=== PATIENT | male | born 1960 | race Caucasian/White ===

== ENCOUNTER 2017-09-12 05:10 | Emergency (ER) | payer OTHER ==
[~2017-09-12] VITALS: Ht 172.7 cm; Wt 77.8 kg
[2017-09-12] MEDS ORDERED: SODIUM CHLORIDE FLUSH 10ML SYR IVF ONE (05:30)
[2017-09-12 05:55] LABS: BASOPHILS # (AUTO) 0.04 x10^3/uL (0-0.1); BASOPHILS % (AUTO) 1 % (0-1); EOSINOPHILS # (AUTO) 0.18 x10^3/uL (0-0.4); EOSINOPHILS % (AUTO) 3 % (1-7); LYMPHOCYTES # (AUTO) 1.83 x10^3/uL (1-3.4); LYMPHOCYTES % (AUTO) 25 % (22-44); MD NO; MEAN CORPUSCULAR HEMOGLOBIN 31.5 pg (27.5-34.5); MEAN CORPUSCULAR HGB CONC 34.2 g/dL (33.2-36.2); MEAN CORPUSCULAR VOLUME 92.2 fL (81-97); MEAN PLATELET VOLUME 8.1 fL (7.4-10.4); MONOCYTES # (AUTO) 0.56 x10^3/uL (0.2-0.8); MONOCYTES % (AUTO) 8 % (2-9); NEUTROPHILS # (AUTO) 4.58 x10^3/uL (1.8-6.8); NEUTROPHILS % (AUTO) 64 % (42-75); PLATELET COUNT 188 x10^3/uL (130-400); RED BLOOD COUNT 4.88 x10^6/uL (4.38-5.82); RED CELL DISTRIBUTION WIDTH 13.1 % (9.4-14.8)
[2017-09-12 05:57] LABS: MICROSCOPIC NOT IND
[2017-09-12 06:05] LABS: INTERNATIONAL NORMALIZED RATIO 0.98 (0.93-1.1); PROTHROMBIN TIME 10.2 Seconds (9.6-11.5)
[2017-09-12 06:11] LABS: ALBUMIN 3.6 g/dL (3.4-5.0); ANION GAP 7 mmol/L (5-15); CALCIUM 8.8 mg/dL (8.5-10.1); CHLORIDE 109 mmol/L (98-107)
[2017-09-12 06:16] LABS: CULTURE INDICATED? NO
[2017-09-12 06:20] LABS: ALANINE AMINOTRANSFERASE 36 U/L (12-78); ALKALINE PHOSPHATASE 64 U/L (45-117); BILIRUBIN,TOTAL 0.5 mg/dL (0.2-1.0); CREATININE 1.05 mg/dL (0.7-1.3); TOTAL PROTEIN 6.9 g/dL (6.4-8.2)
[2017-09-12] MEDS ORDERED: GADOBUTROL 10 MMOL/10 ML PFS ONE (10:08)
[2017-09-12] MEDS ORDERED: DEXAMETHASONE 4 MG TABLET ONE (12:46)
[2017-09-12] MEDS ORDERED: DEXAMETHASONE 4 MG/ML, 1ML IVPush ONE (13:00)
[2017-09-12] MEDS ORDERED: DEXAMETHASONE 4 MG TABLET PO ONE (13:00)
[2017-09-12 15:16] VITALS: BP 120/86
== END 2017-09-12 15:18 | disposition home or self-care (01) ==
LOC: ED 07:18
DX: R33.9 Retention of urine, unspecified (principal); R51 Headache; R29.2 Abnormal reflex
CPT/HCPCS: 36415; 70450; 70552; 72156; 72157; 72158; 74018; 80053; 81003; 83690; 85025; 85610; 93005; 99285; A9585

== ENCOUNTER 2017-09-20 19:22 | Inpatient (IN) | payer OTHER ==
[~2017-09-20] VITALS: Ht 172.7 cm; Wt 75.1 kg
[2017-09-20 20:26] LABS: BASOPHILS # (AUTO) 0.04 x10^3/uL (0-0.1); BASOPHILS % (AUTO) 1 % (0-1); EOSINOPHILS # (AUTO) 0.19 x10^3/uL (0-0.4); EOSINOPHILS % (AUTO) 2 % (1-7); LYMPHOCYTES % (AUTO) 16 % (22-44); MD NO; MEAN CORPUSCULAR HEMOGLOBIN 31.3 pg (27.5-34.5); MEAN CORPUSCULAR HGB CONC 33.5 g/dL (33.2-36.2); MEAN CORPUSCULAR VOLUME 93.5 fL (81-97); MEAN PLATELET VOLUME 8.2 fL (7.4-10.4); MONOCYTES # (AUTO) 0.72 x10^3/uL (0.2-0.8); MONOCYTES % (AUTO) 8 % (2-9); NEUTROPHILS # (AUTO) 6.57 x10^3/uL (1.8-6.8); NEUTROPHILS % (AUTO) 74 % (42-75); PLATELET COUNT 257 x10^3/uL (130-400); RED BLOOD COUNT 5.25 x10^6/uL (4.38-5.82); RED CELL DISTRIBUTION WIDTH 13.3 % (9.4-14.8)
[2017-09-20 20:27] LABS: HCT (SEDRATE) 49.1 % (39.2-51.8)
[2017-09-20] MEDS ORDERED: SODIUM CHLORIDE FLUSH 10ML SYR IVF ONE (20:30)
[2017-09-20 20:37] LABS: ANION GAP 6 mmol/L (5-15); C-REACTIVE PROTEIN, QUANT 0.62 mg/dL (0.02-0.49); CALCIUM 9.3 mg/dL (8.5-10.1); CHLORIDE 105 mmol/L (98-107); CREATININE 1.03 mg/dL (0.7-1.3)
[2017-09-20] MEDS ORDERED: OMEG1CAP23 PO (20:49)
[2017-09-20] MEDS ORDERED: methylPREDNISolone SOD SUCC 125 MG/2 ML ONE (21:16)
[2017-09-20] MEDS ORDERED: methylPREDNISolone SOD SUCC 125 MG/2 ML IVPush ONE (21:30)
[2017-09-20 21:41] LABS: INTERNATIONAL NORMALIZED RATIO 1.01 (0.93-1.1); PROTHROMBIN TIME 10.5 Seconds (9.6-11.5)
[2017-09-20 22:00] VITALS: BP 121/84
[2017-09-20] MEDS: SODIUM CHLORIDE 0.9% 1,000 ML IV SCH (23:01)
[2017-09-20] MEDS ORDERED: BISACODYL 10 MG SUPP PR PRN (23:30)
[2017-09-20] MEDS ORDERED: hydrALAzine 20 MG/ML, 1ML IVPush PRN (23:30)
[2017-09-20] MEDS ORDERED: morphine SULFATE 10 MG/ML, 1ML IVPush PRN (23:30)
[2017-09-20] MEDS ORDERED: ENALAPRILAT 1.25 MG/ML, 2ML IVPush PRN (23:30)
[2017-09-20] MEDS ORDERED: POLYETHYLENE GLYCOL 17 GM PACKET PO PRN (23:30)
[2017-09-20] MEDS ORDERED: METHOCARBAMOL 500 MG TABLET PO PRN (23:30)
[2017-09-20] MEDS ORDERED: ONDANSETRON 2MG/ML, 2ML IVPush PRN (23:30)
[2017-09-20] MEDS ORDERED: ACETAMINOPHEN 325 MG TABLET PO PRN (23:30)
[2017-09-20] MEDS ORDERED: MAGNESIUM CITRATE 300ML ORAL SOL PO ONE (23:30)
[2017-09-20] MEDS ORDERED: OXYcodone IR 5MG TABLET PO PRN (23:30)
[2017-09-20 23:48] LABS: HEMOGLOBIN A1C 5.5 % (4.2-6.3)
[2017-09-20 23:50] LABS: FREE T4 (FREE THYROXINE) 0.87 ng/dL (0.76-1.46)
[2017-09-21] MEDS: THIAMINE 100MG TABLET PO SCH ×2 (00:01→08:48)
[2017-09-21] MEDS: GABAPENTIN 100 MG CAPSULE PO SCH ×5 (00:01→20:25)
[2017-09-21] MEDS: MULTIVITAMIN 1 TABLET PO SCH ×2 (00:02→08:48)
[2017-09-21] MEDS: FOLIC ACID 1 MG TABLET PO SCH ×2 (00:02→08:48)
[2017-09-21] MEDS: DEXAMETHASONE 4 MG/ML, 1ML IVPush SCH ×5 (00:02→23:41)
[2017-09-21 00:03] LABS: MICROSCOPIC NOT IND
[2017-09-21 00:09] LABS: CULTURE INDICATED? NO
[2017-09-21] MEDS ORDERED: MAGNESIUM CITRATE 300ML ORAL SOL PO ONE (04:30)
[2017-09-21 05:13] VITALS: BP 107/76
[2017-09-21 05:57] LABS: BASOPHILS % (AUTO) 0 % (0-1); EOSINOPHILS % (AUTO) 0 % (1-7); LYMPHOCYTES # (AUTO) 0.52 x10^3/uL (1-3.4); LYMPHOCYTES % (AUTO) 5 % (22-44); MD NO; MEAN CORPUSCULAR HEMOGLOBIN 31.6 pg (27.5-34.5); MEAN CORPUSCULAR HGB CONC 34.1 g/dL (33.2-36.2); MEAN CORPUSCULAR VOLUME 92.5 fL (81-97); MEAN PLATELET VOLUME 8.7 fL (7.4-10.4); MONOCYTES # (AUTO) 0.05 x10^3/uL (0.2-0.8); MONOCYTES % (AUTO) 1 % (2-9); NEUTROPHILS # (AUTO) 9.61 x10^3/uL (1.8-6.8); NEUTROPHILS % (AUTO) 94 % (42-75); PLATELET COUNT 235 x10^3/uL (130-400); RED BLOOD COUNT 4.86 x10^6/uL (4.38-5.82); RED CELL DISTRIBUTION WIDTH 13.4 % (9.4-14.8)
[2017-09-21 06:03] LABS: CHLORIDE 109 mmol/L (98-107)
[2017-09-21 06:09] LABS: ALANINE AMINOTRANSFERASE 27 U/L (12-78); ALBUMIN 3.5 g/dL (3.4-5.0); ALKALINE PHOSPHATASE 69 U/L (45-117); ANION GAP 9 mmol/L (5-15); BILIRUBIN,TOTAL 0.5 mg/dL (0.2-1.0); CALCIUM 8.7 mg/dL (8.5-10.1); CHOLESTEROL, TOTAL 180 mg/dL (140-239); CREATININE 0.98 mg/dL (0.7-1.3); HDL CHOL % 25 % (26-37); HDL CHOLESTEROL (DIRECT) 45 mg/dL (40-60); LDL CHOLESTEROL,CALCULATED 124 mg/dL (54-169); LDL/HDL RATIO 2.8 (0.5-3.0); TOTAL PROTEIN 6.9 g/dL (6.4-8.2); TRIGLYCERIDES 54 mg/dL (50-200); VLDL CHOLESTEROL 11 mg/dL (0-25)
[2017-09-21] MEDS: SODIUM CHLORIDE 0.9% 1,000 ML IV SCH ×2 (07:01→17:00)
[2017-09-21 08:02] VITALS: BP 120/71
[2017-09-21] MEDS: SENNA/DOCUSATE TABLET PO SCH (08:48)
[2017-09-21 13:15] VITALS: BP 124/79
[2017-09-21 14:09] VITALS: BP 103/63
[2017-09-21] MEDS ORDERED: MAGNESIUM CITRATE 300ML ORAL SOL ONE (18:25)
[2017-09-21 19:20] VITALS: BP 122/81
[2017-09-22] MEDS: SODIUM CHLORIDE 0.9% 1,000 ML IV SCH ×3 (01:00→16:05)
[2017-09-22 01:42] VITALS: BP 121/69
[2017-09-22] MEDS: DEXAMETHASONE 4 MG/ML, 1ML IVPush SCH (05:36)
[2017-09-22] MEDS: GABAPENTIN 100 MG CAPSULE PO SCH (05:36)
[2017-09-22 06:53] VITALS: BP 121/72
[2017-09-22] MEDS: MULTIVITAMIN 1 TABLET PO SCH (08:44)
[2017-09-22] MEDS: THIAMINE 100MG TABLET PO SCH (08:44)
[2017-09-22] MEDS: FOLIC ACID 1 MG TABLET PO SCH (08:44)
[2017-09-22] MEDS: SENNA/DOCUSATE TABLET PO SCH (08:44)
[2017-09-22] MEDS ORDERED: ERGOCALCIFEROL 50,000 UNIT CAPSULE PO SCH (09:30)
[2017-09-22] MEDS: GABAPENTIN 300 MG CAPSULE PO SCH ×2 (10:54→16:05)
[2017-09-22] MEDS ORDERED: GABA300C10 PO (11:58)
[2017-09-22] MEDS ORDERED: MULT1TAB60 PO (11:58)
[2017-09-22] MEDS ORDERED: SENN1TAB7 PO (11:58)
[2017-09-22] MEDS ORDERED: BISA10SU65 PR (11:58)
[2017-09-22] MEDS ORDERED: THIA100T6 PO (11:58)
[2017-09-22] MEDS ORDERED: ACET325T14 PO (11:58)
[2017-09-22] MEDS ORDERED: ERGO500017 PO (11:58)
[2017-09-22] MEDS ORDERED: FOLI-17 PO (11:58)
[2017-09-22] MEDS ORDERED: METH500T7 PO (11:58)
[2017-09-22] MEDS ORDERED: DEXA4TAB PO (11:58)
[2017-09-22] MEDS ORDERED: MAGN296S9 PO (12:24)
[2017-09-22] MEDS: DEXAMETHASONE 4 MG TABLET PO SCH ×2 (12:28→16:05)
[2017-09-22] MEDS ORDERED: MAGNESIUM CITRATE 300ML ORAL SOL PO PRN (12:30)
[2017-09-22] MEDS ORDERED: TAMS0.4C2 PO (12:49)
[2017-09-22 14:09] VITALS: BP 119/67
[2017-09-22 14:39] LABS: GLUCOSE, CSF 87 mg/dL (40-80); TOTAL PROTEIN,CSF 54 mg/dL (15-45)
[2017-09-22] MEDS ORDERED: GABAPENTIN 300 MG CAPSULE PO SCH (16:00)
== END 2017-09-22 18:00 | disposition home or self-care (01) | DRG 74 ==
LOC: ED 20:39 → EDIP 21:51 → 4NOR 21:56
PROVIDERS: ADMIT Internal Medicine; ATTEND Internal Medicine
PROC: 009U3ZX Drainage of Spinal Canal, Percutaneous Approach, Diagnostic (ICD-10-PCS; principal; 2017-09-22)
PROC: B01B1ZZ Fluoroscopy of Spinal Cord using Low Osmolar Contrast (ICD-10-PCS; 2017-09-22)
DX: G62.9 Polyneuropathy, unspecified (principal); G81.90 Hemiplegia, unspecified affecting unspecified side; K59.00 Constipation, unspecified; M48.02 Spinal stenosis, cervical region; M50.223 Other cervical disc displacement at C6-C7 level; M51.24 Other intervertebral disc displacement, thoracic region; M51.27 Other intervertebral disc displacement, lumbosacral region; Z79.899 Other long term (current) drug therapy
CPT/HCPCS: 36415; 62270; 80048; 80053; 80061; 81003; 82040; 82042; 82306; 82607; 82784; 82945; 83036; 83735; 83873; 84157; 84439; 84443; 85025; 85610; 85651; 86140; 86316; 86645; 86695; 86696; 86762; 86777; 86778; 87252; 89051; 93005; 96374; J1100; J2930; J7030

== ENCOUNTER → 2017-10-27 | Outpatient (CLI) | payer OTHER ==
[~2017-10-27] MED LIST: ACET325T14 PO; BISA10SU65 PR; DEXA4TAB PO; ERGO500017 PO; FOLI-17 PO; GABA300C10 PO; MAGN296S9 PO; METH500T7 PO; MULT1TAB60 PO; OMEG1CAP23 PO; SENN1TAB7 PO; TAMS0.4C2 PO; THIA100T6 PO
[2017-10-27 08:06] LABS: HCT (SEDRATE) 42.5 % (39.2-51.8)
[2017-10-27 08:44] LABS: FOLATE LEVEL > 20.0 ng/mL (3.1-17.5)
== END | disposition home or self-care (01) ==
LOC: LAB 07:47
PROVIDERS: ATTEND Psychiatry & Neurology Neurology
DX: G95.9 Disease of spinal cord, unspecified (principal)
CPT/HCPCS: 36415; 82390; 82525; 82607; 82746; 85651; 86038

== ENCOUNTER → 2018-02-17 | Outpatient (CLI) | payer OTHER ==
[~2018-02-17] MED LIST changes: +GADOBUTROL 7.5 MMOL/7.5 ML PFS ONE
== END | disposition home or self-care (01) ==
LOC: CFH 09:08
PROVIDERS: ATTEND Family Medicine
DX: M47.894 Other spondylosis, thoracic region (principal); G37.3 Acute transverse myelitis in demyelinating disease of central nervous system
CPT/HCPCS: 72157; 83520; A9585

== ENCOUNTER → 2018-08-12 | Outpatient (CLI) | payer OTHER ==
[~2018-08-12] MED LIST changes: -GADOBUTROL 7.5 MMOL/7.5 ML PFS ONE; -SENN1TAB7 PO; +SENN1TAB8 PO; -THIA100T6 PO; +THIA100T67 PO
[2018-08-12 07:39] LABS: ALANINE AMINOTRANSFERASE 25 U/L (12-78); ALBUMIN 3.9 g/dL (3.4-5.0); ANION GAP 6 mmol/L (5-15); CALCIUM 8.8 mg/dL (8.5-10.1); CHLORIDE 108 mmol/L (98-107); CREATININE 1.13 mg/dL (0.7-1.3); TRIGLYCERIDES 85 mg/dL (50-200); VLDL CHOLESTEROL 17 mg/dL (0-25)
[2018-08-12 07:43] LABS: ALKALINE PHOSPHATASE 61 U/L (45-117); BILIRUBIN,TOTAL 0.6 mg/dL (0.2-1.0); CHOL/HDL RATIO 4.5; CHOLESTEROL, TOTAL 206 mg/dL (140-239); HDL CHOL % 22 % (26-37); HDL CHOLESTEROL (DIRECT) 46 mg/dL (40-60); LDL CHOLESTEROL,CALCULATED 143 mg/dL (54-169); LDL/HDL RATIO 3.1 (0.5-3.0); TOTAL PROTEIN 7.1 g/dL (6.4-8.2)
== END | disposition home or self-care (01) ==
LOC: LAB 08-11 13:12
PROVIDERS: ATTEND Family Medicine
DX: Z00.00 Encounter for general adult medical examination without abnormal findings (principal); E78.5 Hyperlipidemia, unspecified; R03.0 Elevated blood-pressure reading, without diagnosis of hypertension; R20.9 Unspecified disturbances of skin sensation
CPT/HCPCS: 36415; 80053; 80061

== ENCOUNTER → 2019-08-14 | Outpatient (CLI) | payer OTHER ==
[~2019-08-14] MED LIST changes: +SENN-177 PO; -SENN1TAB8 PO
[2019-08-14 11:06] LABS: ANION GAP 5 mmol/L (5-15); CALCIUM 8.9 mg/dL (8.5-10.1); CHLORIDE 106 mmol/L (98-107); CHOLESTEROL, TOTAL 224 mg/dL (140-239)
[2019-08-14 11:13] LABS: ALANINE AMINOTRANSFERASE 33 U/L (12-78); ALKALINE PHOSPHATASE 65 U/L (45-117); BILIRUBIN,TOTAL 0.9 mg/dL (0.2-1.0); CHOL/HDL RATIO 4.2; CREATININE 1.12 mg/dL (0.7-1.3); HDL CHOL % 24 % (26-37); HDL CHOLESTEROL (DIRECT) 53 mg/dL (40-60); LDL CHOLESTEROL,CALCULATED 145 mg/dL (54-169); LDL/HDL RATIO 2.7 (0.5-3.0); TOTAL PROTEIN 7.2 g/dL (6.4-8.2); TRIGLYCERIDES 131 mg/dL (50-200); VLDL CHOLESTEROL 26 mg/dL (0-25)
== END | disposition home or self-care (01) ==
LOC: LAB 10:40
PROVIDERS: ATTEND Family Medicine
DX: Z00.00 Encounter for general adult medical examination without abnormal findings (principal); E78.5 Hyperlipidemia, unspecified; Z79.899 Other long term (current) drug therapy
CPT/HCPCS: 36415; 80053; 80061

== ENCOUNTER → 2020-02-14 | Outpatient (CLI) | payer OTHER ==
[~2020-02-14] MED LIST changes: +MAGN296S67 PO; -MAGN296S9 PO
[2020-02-14 09:12] LABS: ALBUMIN 3.9 g/dL (3.4-5.0); ANION GAP 7 mmol/L (5-15); CALCIUM 8.8 mg/dL (8.5-10.1); CHLORIDE 108 mmol/L (98-107)
[2020-02-14 09:14] LABS: ALANINE AMINOTRANSFERASE 24 U/L (12-78); ALKALINE PHOSPHATASE 58 U/L (45-117); BILIRUBIN,TOTAL 0.7 mg/dL (0.2-1.0); CHOL/HDL RATIO 3.6; CHOLESTEROL, TOTAL 192 mg/dL (140-239); CREATININE 0.99 mg/dL (0.7-1.3); HDL CHOL % 28 % (26-37); HDL CHOLESTEROL (DIRECT) 54 mg/dL (40-60); LDL CHOLESTEROL,CALCULATED 121 mg/dL (54-169); LDL/HDL RATIO 2.2 (0.5-3.0); TOTAL PROTEIN 6.9 g/dL (6.4-8.2); TRIGLYCERIDES 86 mg/dL (50-200); VLDL CHOLESTEROL 17 mg/dL (0-25)
== END | disposition home or self-care (01) ==
LOC: LAB 08:46
PROVIDERS: ATTEND Family Medicine
DX: Z00.00 Encounter for general adult medical examination without abnormal findings (principal); E78.5 Hyperlipidemia, unspecified; R03.0 Elevated blood-pressure reading, without diagnosis of hypertension
CPT/HCPCS: 36415; 80053; 80061

== ENCOUNTER → 2020-09-11 | Outpatient (CLI) | payer OTHER ==
[~2020-09-11] MED LIST changes: +MULT-449 PO; -MULT1TAB60 PO
[2020-09-11 10:42] LABS: ALANINE AMINOTRANSFERASE 32 U/L (12-78); ALBUMIN 4.1 g/dL (3.4-5.0); CALCIUM 9.2 mg/dL (8.5-10.1); CHOLESTEROL, TOTAL 240 mg/dL (140-239); CREATININE 1.14 mg/dL (0.7-1.3); TRIGLYCERIDES 113 mg/dL (50-200); VLDL CHOLESTEROL 23 mg/dL (0-25)
[2020-09-11 10:50] LABS: CHLORIDE 107 mmol/L (98-107)
[2020-09-11 10:58] LABS: ANION GAP 3 mmol/L (5-15)
[2020-09-11 11:06] LABS: ALKALINE PHOSPHATASE 65 U/L (45-117); BILIRUBIN,TOTAL 0.7 mg/dL (0.2-1.0); HDL CHOL % 25 % (26-37); HDL CHOLESTEROL (DIRECT) 60 mg/dL (40-60); LDL CHOLESTEROL,CALCULATED 157 mg/dL (54-169); LDL/HDL RATIO 2.6 (0.5-3.0); TOTAL PROTEIN 7.3 g/dL (6.4-8.2)
[2020-09-11 11:07] LABS: FOLATE LEVEL > 20.0 ng/mL (3.1-17.5)
== END | disposition home or self-care (01) ==
LOC: LAB 10:17
PROVIDERS: ATTEND Family Medicine
DX: Z00.00 Encounter for general adult medical examination without abnormal findings (principal); N03.0 Chronic nephritic syndrome with minor glomerular abnormality; E78.5 Hyperlipidemia, unspecified
CPT/HCPCS: 36415; 80053; 80061; 82607; 82746

== ENCOUNTER → 2021-02-06 | Outpatient (CLI) | payer OTHER ==
[~2021-02-06] MED LIST changes: -FOLI-17 PO; +FOLI1TAB32 PO; +METH-639 PO; -METH500T7 PO
[2021-02-06 08:06] LABS: ALANINE AMINOTRANSFERASE 28 U/L (12-78); ALBUMIN 3.7 g/dL (3.4-5.0); ANION GAP 3 mmol/L (5-15); CALCIUM 8.5 mg/dL (8.5-10.1); CHLORIDE 110 mmol/L (98-107); CREATININE 0.89 mg/dL (0.7-1.3)
[2021-02-06 08:09] LABS: ALKALINE PHOSPHATASE 57 U/L (45-117); BILIRUBIN,TOTAL 0.4 mg/dL (0.2-1.0); CHOL/HDL RATIO 3.8; CHOLESTEROL, TOTAL 196 mg/dL (140-239); HDL CHOL % 27 % (26-37); HDL CHOLESTEROL (DIRECT) 52 mg/dL (40-60); LDL CHOLESTEROL,CALCULATED 133 mg/dL (54-169); LDL/HDL RATIO 2.6 (0.5-3.0); TOTAL PROTEIN 6.8 g/dL (6.4-8.2); TRIGLYCERIDES 55 mg/dL (50-200); VLDL CHOLESTEROL 11 mg/dL (0-25)
== END | disposition home or self-care (01) ==
LOC: LAB 07:41
PROVIDERS: ATTEND Family Medicine
DX: E78.5 Hyperlipidemia, unspecified (principal); R53.83 Other fatigue; N03.0 Chronic nephritic syndrome with minor glomerular abnormality; R82.5 Elevated urine levels of drugs, medicaments and biological substances
CPT/HCPCS: 36415; 80053; 80061